=== PATIENT | female | born 1985 | race Caucasian/White ===

== ENCOUNTER 2016-12-09 15:20 | Inpatient (IN) | payer OTHER ==
[2016-12-09 18:24] VITALS: BMI 21.2
--- NOTE | 2016-12-09 21:07 | HP ---
Admission [facility] Chief Complaint: SEEKING SUBSTANCE ABUSE TXMENT FOR CRACK/COCAINE DEPENDENCE Allergies/Adverse Reactions: Allergies Allergy/AdvReac Type Severity Reaction Status Date / Time chlorpromazine HCl Allergy Severe Rash Verified 12/09/16 20:42 [From Thorazine] History of Present Illness: 31 Y.O FEMALE WITH CANNABIS AND COCAINE DEPENDENCE ADMITTED TO REHAB. CLIENT REPORTS FIRST TIME IN DRUG TXMENT. REFERRED BY [facility]. DENIES ANY SIGNIFICANT CLEAN TIME IN THE PAST. Exam Limitations: No Limitations - Ebola screening Have you traveled outside of the country in the last 21 days: No Have you had contact with anyone from an Ebola affected area: No Have you been sick,other than usual withdrawal symptoms: No - Review of Systems Constitutional: Malaise, Changes in sleep EENT: reports: Dental Problems (MISSING TOOTH) Respiratory: reports: No Symptoms reported Cardiac: reports: No Symptoms Reported GI: reports: No Symptoms Reported : reports: No Symptoms Reported Musculoskeletal: reports: Joint Pain Integumentary: reports: No Symptoms Reported Neuro: reports: No Symptoms reported Endocrine: reports: No Symptoms Reported Hematology: reports: No Symptoms Reported Psychiatric: reports: Anxious Other Systems: Reviewed and Negative Patient History - Patient Medical History Hx Anemia: No Hx Asthma: No Hx Chronic Obstructive Pulmonary Disease (COPD): No Hx Cancer: No Hx Cardiac Disorders: No Hx Congestive Heart Failure: No Hx Hypertension: No Hx Hypercholesterolemia: No Hx Pacemaker: No HX Cerebrovascular Accident: No Hx Seizures: No Hx Dementia: No Hx Diabetes: No Hx Gastrointestinal Disorders: No Hx Liver Disease: No Hx Genitourinary Disorders: No Hx Sexually Transmitted Disorders: No Hx Renal Disease (ESRD): No Hx Thyroid Disease: No Hx Human Immunodeficiency Virus (HIV): No Hx Hepatitis C: No Hx Depression: Yes (TRAZODONE) Hx Suicide Attempt: No Hx Bipolar Disorder: No Hx Schizophrenia: Yes Other Medical History: INSOMNIA - Patient Surgical History Past Surgical History: Yes Hx Orthopedic Surgery: Yes (R FOOT BUNION) Anesthesia Reaction: No - PPD History Previous Implant?: Yes Documented Results: Negative w/o proof Implanted On Prior [facility] Admission?: No PPD to be Administered?: Yes - Reproductive History Patient is a Female of Child Bearing Age (11 -55 yrs old): Yes Last Menstrual Period: 11/26/16 Patient : No (NEG [facility] [place]) - Smoking Cessation Smoking history: Current every day smoker Have you smoked in the past 12 months: Yes Aproximately how many cigarettes per day: 20 Cigars Per Day: 0 Hx Chewing Tobacco Use: No Initiated information on smoking cessation: Yes 'Breaking Loose' booklet given: 12/09/16 - Substance & Tx. History Hx Alcohol Use: No Hx Substance Use: Yes Substance Use Type: Cocaine, Marijuana Hx Substance Use Treatment: No - Substances Abused COCAINE/CRACK Route: Smoking Frequency: 3-6 times per week Amount used: 4 BAGS Age of first use: 28 Date of Last Use: 12/06/16 THC Route: Smoking Frequency: 3-6 times per week Amount used: 1 BAG Age of first use: 12 Date of Last Use: 12/06/16 Family Disease History - Family Disease History Family Disease History: CA: Grandparent (THROAT), Mother (BREAST) Admission Physical Exam [facility] - Vital Signs Vital Signs: Vital Signs - 24 hr 12/09/16 18:20 Temperature 98.1 F Pulse Rate 78 Respiratory 18 Rate Blood Pressure 154/83 - Physical General Appearance: Yes: Appropriately Dressed, Mild Distress, Thin, Tremorous HEENTM: Yes: EOMI, Normocephalic, Normal Voice, NIC, Pharynx Normal Respiratory: Yes: Chest Non-Tender, Lungs Clear, Normal Breath Sounds, No Respiratory Distress, No Accessory Muscle Use Neck: Yes: No masses,lesions,Nodules, Supple, Trachea in good position Breast: Yes: Breast Exam Deferred Cardiology: Yes: Regular Rhythm, Regular Rate, S1, S2 Abdominal: Yes: Normal Bowel Sounds, Non Tender, Soft Genitourinary: Yes: Within Normal Limits Back: Yes: Normal Inspection Musculoskeletal: Yes: full range of Motion, Gait Steady Extremities: Yes: Normal Range of Motion, Non-Tender, Tremors Neurological: Yes: neurosurgery spine physician II-XII NML intact, Fully Oriented, Alert, Motor Strength 5/5 Integumentary: Yes: Dry, Cold Lymphatic: Yes: Within Normal Limits - Diagnostic (1) Cocaine dependence, uncomplicated Current Visit: Yes Status: Chronic (2) Cannabis dependence, uncomplicated Current Visit: Yes Status: Chronic (3) Nicotine dependence Current Visit: Yes Status: Chronic Qualifiers: Nicotine product type: cigarettes Substance use status: uncomplicated Qualified Code(s): F17.210 - Nicotine dependence, cigarettes, uncomplicated Cleared for Admission [facility] - Detox or Rehab Detox Regimen/Protocol: Not Applicable Claeared for Rehab Admission: Yes S Breath Alcohol Content Breath Alcohol Content: 0 Urine Pregancy Test - Result Urine Test Results: Negative- NO Line Present Urine Drug Screen - Results Drug Screen Negative: No Urine Drug Screen Results: THC-Marijuana, MORGAN-Cocaine
[2016-12-09] MEDS ORDERED: diphenhydrAMINE HCL 50 MG CAPSULE PO PRN (21:15)
[2016-12-09] MEDS ORDERED: MAGNESIUM CITRATE 300 ML BOTTLE PO PRN (21:15)
[2016-12-09] MEDS ORDERED: P-EPHED 60MG/TRIPROLIDI 2.5MG TABLET PO PRN (21:15)
[2016-12-09] MEDS ORDERED: NICOTINE POLACRILEX 2 MG GUM BC PRN (21:15)
[2016-12-09] MEDS ORDERED: ACETAMINOPHEN 325 MG TABLET (FP) PO PRN (21:15)
[2016-12-09] MEDS ORDERED: LOPERAMIDE HCL 2 MG CAPSULE PO PRN (21:15)
[2016-12-09] MEDS ORDERED: MENTHOL/PHENOL 1 EACH UD MM PRN (21:15)
[2016-12-09] MEDS ORDERED: MAGNESIUM HYDROX 2400MG/30ML ORAL SUSPENSION 30 ML CUP PO PRN (21:15)
[2016-12-09] MEDS ORDERED: IBUPROFEN 400 MG TABLET (FP) PO PRN (21:15)
[2016-12-09] MEDS ORDERED: guaiFENesin/D-METHORPHAN HB 10 ML UNIT-DOSE CUPS PO PRN (21:15)
[2016-12-09] MEDS ORDERED: MAG HYDROX/AL HYDROX/SIMETH 30 ML UNIT-DOSE CUP PO PRN (21:15)
[2016-12-09] MEDS ORDERED: TUBERCULIN PPD 5 TU/0.1ML VIAL ID ONE (22:05)
[2016-12-09] MEDS: THIAMINE HCL 100 MG TABLET (FP) PO SCH (22:05)
[2016-12-09] MEDS: NICOTINE 21 MG/24 HOURS TOPICAL PATCH TD SCH (22:07)
[2016-12-09 23:12] LABS: URINE APPEARANCE SLCLOUDY; URINE BILIRUBIN NEGATIVE (NEGATIVE); URINE BLOOD NEGATIVE (NEGATIVE); URINE COLOR YELLOW; URINE GLUCOSE (UA) NEGATIVE (NEGATIVE); URINE KETONE NEGATIVE (NEGATIVE); URINE LEUK ESTERASE NEGATIVE (NEGATIVE); URINE NITRITE NEGATIVE (NEGATIVE); URINE PROTEIN NEGATIVE (NEGATIVE); URINE UROBILINOGEN NEGATIVE E.U./dl (0.2-1.0)
[2016-12-09] MEDS: traZODone HCL 50 MG TABLET (FP) PO SCH (23:26)
--- NOTE | 2016-12-10 10:31 | HP ---
Psychiatrist Admission - Data Date of interview: 12/10/16 Admission source: [facility] ,[facility] Identifying data: This is the first admission to [address] [place] [address] for this 31 years old single,childless H female,resides with grandparents,supported by SSD. Medical History: unremarkable Psychiatric History: First contact with psychiatrist was in 2008 when she was admitted to [facility] in after her psychotic breakdown.Patient was dx with schizophrenia.Paranoid type.She was placed on Seroquel.Patient has been on different antipsychotics including Thorazine, Zyprexa,Risperidone,Geodon,Haldol Decanoate.Patient is currently under care of [facility] in [facility].Last Haldol Decanoate IM 150 mg was given this week.She is also taking Trazodone 50 mg po hs and Cogentin 1 mg po bid.. Physical/Sexual Abuse/Trauma History: denies Vital Signs: Vital Signs - 24 hr 12/09/16 12/09/16 12/10/16 18:20 21:50 07:10 Temperature 98.1 F 98.1 F 97.9 F Pulse Rate 78 86 80 Respiratory 18 18 18 Rate Blood Pressure 154/83 107/83 109/81 Allergies/Adverse Reactions: Allergies Allergy/AdvReac Type Severity Reaction Status Date / Time chlorpromazine HCl Allergy Severe Rash Verified 12/09/16 20:42 [From Thorazine] Date of last physical exam: 12/09/16 Concur with the findings of this exam: Yes - Substance Abuse/Tx History Hx Alcohol Use: No Hx Substance Use: Yes (marijuana since 12 yo,1 bag 3-6 times a week,cocaine since 28 yo,4 bags 6 t) Substance Use Type: Cocaine, Marijuana Hx Substance Use Treatment: Yes (this is her 1st treatment,no significant time abstinence) - Admission Criteria Previous failed treatment: Yes Poor recovery environment: Yes Comorbidities: Yes Lacks judgement: Yes Mental Status Exam - Mental Status Exam Alert and Oriented to: Time, Place, Person Cognitive Function: Grossly Intact Patient Appearance: Well Groomed Mood: Euthymic Affect: Mood Congruent Patient Behavior: Cooperative Speech Pattern: Clear Voice Loudness: Normal Thought Process: Goal Oriented Thought Disorder: Present Hallucinations: Auditory Suicidal Ideation: Denies Homicidal Ideation: Denies Insight/Judgement: Fair Sleep: Difficulty falling asleep Appetite: Good Muscle strength/Tone: Normal Gait/Station: Normal Psychiatric Findings - Problem List ([place] 1, 2,3) (1) Cannabis dependence, uncomplicated Current Visit: Yes Status: Chronic (2) Cocaine dependence, uncomplicated Current Visit: Yes Status: Chronic (3) Nicotine dependence Current Visit: Yes Status: Chronic Qualifiers: Nicotine product type: cigarettes Substance use status: uncomplicated Qualified Code(s): F17.210 - Nicotine dependence, cigarettes, uncomplicated (4) Schizophrenia Current Visit: Yes Status: Chronic - Initial Treatment Plan Initial Treatment Plan: Patient will continue current medications as per plan. Will monitor progress.
[2016-12-10] MEDS: PRENATAL VITAMINS W/ FOLIC ACID TABLET (FP) PO SCH (10:41)
[2016-12-10] MEDS: NICOTINE 21 MG/24 HOURS TOPICAL PATCH TD SCH (10:41)
--- NOTE | 2016-12-10 11:59 | EKG ---
Test Reason : Blood Pressure : / mmHG Vent. Rate : 075 BPM Atrial Rate : 075 BPM P-R Int : 158 ms QRS Dur : 092 ms QT Int : 384 ms P-R-T Axes : 060 073 068 degrees QTc Int : 428 ms NORMAL SINUS RHYTHM NORMAL ECG NO PREVIOUS ECGS AVAILABLE Confirmed by NOHEMI MCCRAY, SVETA ([id number]) on 12/10/2016 11:58:49 AM Referred By: Confirmed By:SVETA SONG MD
[2016-12-10] MEDS: BENZTROPINE MESYLATE 1 MG TABLET (FP) PO SCH ×2 (14:11→21:47)
[2016-12-10] MEDS: hydrOXYzine PAMOATE 50 MG CAPSULE (FP) PO PRN (14:11)
[2016-12-10 14:41] LABS: MCH 29.7 pg (25.7-33.7); MCHC 33.1 g/dl (32.0-36.0); MEAN CELL VOLUME 89.9 fl (80-96); MEAN PLT VOLUME 12.2 fl (7.5-11.1); WHITE BLOOD COUNT 7.5 K/mm3 (4.0-10.0)
[2016-12-10 14:50] LABS: ALBUMIN 3.3 g/dl (3.4-5.0); ANION GAP 9 (8-16); CO2 25 mmol/L (21-32); CREATININE 0.9 mg/dL (0.55-1.02); GLUCOSE,RANDOM 83 mg/dL (74-106); SGOT/AST 14 U/L (15-37); SGPT/ALT 19 U/L (12-78)
[2016-12-10 14:52] LABS: ALK PHOS 70 U/L (45-117); BILIRUBIN,TOTAL 0.7 mg/dL (0.2-1.0); TOT PROT 5.8 g/dl (6.4-8.2)
[2016-12-10 15:04] LABS: HIV 1 & 2 AB NEGATIVE; HIV 1 AGp24 NEGATIVE
[2016-12-10 15:39] LABS: PLATELET ESTIMATE DECREASED (NORMAL)
[2016-12-10] MEDS: traZODone HCL 50 MG TABLET (FP) PO SCH (21:47)
[2016-12-10] MEDS: THIAMINE HCL 100 MG TABLET (FP) PO SCH (21:49)
[2016-12-11] MEDS: PRENATAL VITAMINS W/ FOLIC ACID TABLET (FP) PO SCH (09:37)
[2016-12-11] MEDS: BENZTROPINE MESYLATE 1 MG TABLET (FP) PO SCH ×2 (09:37→21:04)
[2016-12-11] MEDS: NICOTINE 21 MG/24 HOURS TOPICAL PATCH TD SCH (10:59)
[2016-12-11] MEDS: hydrOXYzine PAMOATE 50 MG CAPSULE (FP) PO PRN (11:26)
[2016-12-11] MEDS ORDERED: PT OWN MED DRAWER 7, Y5N ONE (19:59)
[2016-12-11] MEDS: traZODone HCL 50 MG TABLET (FP) PO SCH (21:04)
[2016-12-11] MEDS: THIAMINE HCL 100 MG TABLET (FP) PO SCH (21:04)
[2016-12-12 07:30] VITALS: BP 97/68; PULSE 96; TEMP 98.1
[2016-12-12] MEDS: BENZTROPINE MESYLATE 1 MG TABLET (FP) PO SCH (10:00)
[2016-12-12] MEDS: PRENATAL VITAMINS W/ FOLIC ACID TABLET (FP) PO SCH (10:00)
[2016-12-12] MEDS: NICOTINE 21 MG/24 HOURS TOPICAL PATCH TD SCH (10:01)
--- NOTE | 2016-12-12 10:04 | PN ---
Psychiatric Progress Note Vital Signs: Vital Signs Period Temp Pulse Resp BP Sys/Henley Pulse Ox Last 24 Hr 98.1 F 96 17-18 97/68 Date of Session: 12/12/16 Current Medications: Active Medications Generic Name Dose Route Start Last Admin Trade Name Freq PRN Reason Stop Dose Admin Acetaminophen 650 mg 12/09/16 21:15 Tylenol - PO Q4H PRN PAIN Al Hydroxide/Mg Hydroxide 30 ml 12/09/16 21:15 Mylanta Oral Suspension - PO Q6H PRN DYSPEPSIA Benztropine Mesylate 2 mg 12/10/16 14:15 12/12/16 10:00 Cogentin - PO 2 mg BID CANDIDA Administration Diphenhydramine HCl 50 mg 12/09/16 21:15 12/10/16 21:47 Benadryl - PO 50 mg HSMR1 PRN Administration INSOMNIA Eucalyptus/Menthol/Phenol/Sorbitol 1 each 12/09/16 21:15 Cepastat Lozenge - MM Q4H PRN SORE THROAT Guaifenesin 10 ml 12/09/16 21:15 Robitussin Dm - PO Q6H PRN COUGH Hydroxyzine Pamoate 50 mg 12/09/16 21:15 12/11/16 11:26 Vistaril - PO 50 mg Q4H PRN Administration AGITATION Ibuprofen 400 mg 12/09/16 21:15 Motrin - PO Q6H PRN SEVERE PAIN Loperamide HCl 4 mg 12/09/16 21:15 Imodium - PO Q6H PRN DIARRHEA Magnesium Citrate 300 ml 12/09/16 21:15 Citroma - PO Q48H PRN CONSTIPATION Magnesium Hydroxide 30 ml 12/09/16 21:15 Milk Of Magnesia - PO DAILY PRN CONSTIPATION Nicotine 21 mg 12/09/16 21:15 12/12/16 10:01 Nicoderm Patch - TD Not Given DAILY CANDIDA Nicotine Polacrilex 2 mg 12/09/16 21:15 Nicorette Gum - BC Q2H PRN NICOTINE REPLACEMENT RX Multivit/Folic Acid/Iron 1 tab 12/10/16 10:00 12/12/16 10:00 Vitamins ([facility]) - PO 1 tab DAILY CANDIDA Administration Pseudoephedrine/Triprolidine 1 combo 12/09/16 21:15 Actifed - PO TID PRN NASAL CONGESTION Thiamine HCl 100 mg 12/09/16 22:00 12/11/16 21:04 Vitamin B1 - PO 100 mg HS CANDIDA Administration Trazodone HCl 50 mg 12/09/16 23:15 12/11/16 21:04 Desyrel - PO 50 mg HS CANDIDA Administration Psychiatric Treatment Plan - Problem List (1) Cannabis dependence, uncomplicated Current Visit: Yes (2) Cocaine dependence, uncomplicated Current Visit: Yes (3) Nicotine dependence Current Visit: Yes Qualifiers: Nicotine product type: cigarettes Substance use status: uncomplicated Qualified Code(s): F17.210 - Nicotine dependence, cigarettes, uncomplicated (4) Schizophrenia Current Visit: Yes
== END 2016-12-12 13:10 | disposition home or self-care (01) | DRG 895 ==
LOC: YASAS 15:20 → Y3E 20:47
PROVIDERS: ADMIT Psychiatry & Neurology Psychiatry; ATTEND Psychiatry & Neurology Psychiatry
PROC: HZ42ZZZ Group Counseling for Substance Abuse Treatment, Cognitive-Behavioral (ICD-10-PCS; principal; 2016-12-12)
DX: F14.20 Cocaine dependence, uncomplicated (principal); F12.20 Cannabis dependence, uncomplicated; F17.210 Nicotine dependence, cigarettes, uncomplicated; F20.9 Schizophrenia, unspecified
CPT/HCPCS: 36415; 80053; 81003; 85027; 86593; 86803; 87389; 93005; 93010